=== PATIENT | male | born 1930 | race Caucasian/White ===

== ENCOUNTER 2016-11-07 14:14 | Inpatient (IN) | payer MEDICARE, OTHER ==
[~2016-11-07] VITALS: Ht 185.4 cm; Wt 81.0 kg
--- NOTE | ~2016-11-07 | CON ---
PATIENT'S NAME: DRAGAN DE JES[facility] AGE: 86 Y [address] ROOM: [address] [address] LOCATION: GICU ADMIT DATE: 11/07/2016 Consultation DISCHARGE DATE: FAMILY PHYSICIAN: PHYSICIAN, UNKNOWN ATTENDING PHYSICIAN: CHAZ MANCILLA DATE OF CONSULTATION: 11/07/2016 REFERRING PHYSICIAN: Luke Goins MD REASON FOR CONSULTATION: Medical management in the setting of intracranial hemorrhage. HISTORY OF PRESENTING ILLNESS: This 86-year-old white male with previous history of coronary artery disease, status post coronary artery bypass grafting x3, and what sounds like a history of pulmonary embolism, on long-term anticoagulation with warfarin, was transferred to [facility] from [place] with newly discovered intracranial hemorrhage. Briefly, he had been admitted there after being found poorly responsive by his son yesterday morning. Although he was awake at his initial evaluation, he was reportedly in and out of consciousness and only able to express a couple of words. He complained of feeling cold and chilled and was admitted and treated for presumed pneumonia. His clinical condition was relatively poor. Over the course of the night, he remained lethargic and poorly responsive. He did become intermittently confused, pulling and tugging at his medical equipment. Medical staff became concerned, and a CT scan of the head was obtained, which demonstrated a large right parieto-occipital hemorrhage as well as a couple of smaller left-sided hemorrhages. Dr. Mancilla, neurosurgeon, was contacted by telephone and after review of the images, it was felt that the lesion would possibly be amenable to surgery. It was requested that the patient be transferred here for definitive evaluation and management. In recollection, the family was suspicious that he may have fallen outside of his home the night before. His son had gone over to his house on Tuesday evening and had supper with him. Although there was no fall reported at that time, it seemed that he may have been outside picking up apples of the yard and might have fallen around that time. He was noted to have a small abrasion on the back, left side of his head, as well as a scrape on his elbow. X-ray imaging during his initial evaluation did reveal the presence of a right lower lobe pneumonia, and he was appropriately treated for that. On his arrival here, he is partially sedated, paralyzed, and intubated on a mechanical ventilator. Family arrived shortly after his arrival here. PATIENT'S NAME: DRAGAN DE [facility] AGE: 86 Y [address] ROOM: [id number] [place], [place] [id number] LOCATION: [facility] ADMIT DATE: 11/07/2016 Consultation DISCHARGE DATE: FAMILY PHYSICIAN: PHYSICIAN, UNKNOWN ATTENDING PHYSICIAN: CHAZ MANCILLA ALLERGIES: NO KNOWN DRUG ALLERGIES. ILLNESSES: 1. Coronary artery disease, status post coronary artery bypass grafting x3. 2. 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 3. Essential hypertension. 4. Hyperlipidemia. 5. 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 6. Osteoarthritis, generalized. 7. Chronic gait instability. 8. Squamous cell carcinoma of the lip, status post excision. CURRENT MEDICATIONS: 1. Acetaminophen 1000 mg IV q.6 hours p.r.n. pain or fever. 2. Amlodipine 10 mg p.o. daily. 3. Aspirin 81 mg p.o. daily. 4. Atorvastatin 80 mg p.o. q.h.s. 5. Azithromycin 500 mg IV q.24 hours. 6. Rocephin 1 g IV q.24 hours. 7. Lasix 20 mg p.o. daily. 8. Lorazepam 0.5 mg IV p.r.n. agitation. 9. Losartan 50 mg p.o. daily. 10. Metoprolol 25 mg p.o. b.i.d. 11. Nabumetone 500 mg p.o. q.h.s. 12. Protonix 40 mg p.o. q.a.m. 13. Coumadin daily. 14. Potassium 10 mEq p.o. daily. FAMILY HISTORY: Significant for coronary artery disease in his father, at the age 65. Mother at age 85. SOCIAL HISTORY: He is and has lived independently [place] the family farm. He has a 30- to 29-[id number]-lbtf history of smoking tobacco, but has been quit for over 30 years. There is no significant history of alcohol use. REVIEW OF SYSTEMS: As per HPI. All other organ systems reviewed and are negative. OBJECTIVE: VITAL SIGNS: Temperature 97.8, pulse 62, respirations 16, blood pressure 132/62, O2 saturation 99% on 60% FiO2. GENERAL: He is frail, ill appearing, PATIENT'S NAME: DRAGAN DE [facility] AGE: 86 Y [address] ROOM: [id number] [place], [place] [id number] LOCATION: [facility] ADMIT DATE: 11/07/2016 Consultation DISCHARGE DATE: FAMILY PHYSICIAN: PHYSICIAN, UNKNOWN ATTENDING PHYSICIAN: CHAZ MANCILLA unresponsive, lying on the examination table, mechanically ventilated. SKIN: Supple, pale, warm, and dry. There are some subcutaneous hemorrhages over the forearms. There is a skin tear on the left forearm, and an abrasion over the left elbow posteriorly. He has another small skin tear over the right middle finger on the dorsal surface. The skin overlying the lower extremities shows dermatitic change, no ulcerations. HEENT: Otherwise, normocephalic. Sclerae nonicteric. Pupils are equal and round, 2 to 3 mm, very slowly reactive to light. Nasal turbinates normal in appearance. Oropharynx clear. Mucous membranes are pink and moist. Dentition is in poor age-related repair. NECK: Supple. Plethoric. No masses or adenopathy. No thyromegaly. No obvious JVD in the horizontal position. CHEST: Chest wall is symmetrical. HEART: Regular with occasional extrasystoles. There is a grade 2/6 systolic ejection murmur. LUNGS: Coarse and diminished with long expiratory phase. No lili wheezes. No areas of consolidation. ABDOMEN: Soft, protuberant, nontender. Bowel sounds present. No mass or hepatosplenomegaly. and RECTAL: Not done. EXTREMITIES: Display trace to 1+ pitting edema. No cyanosis. NEUROLOGIC: Cranial nerves only partially assessed due to the patient's paralyzed status. LABORATORY AND X-RAY DATA: CT scan of the brain repeated here in the emergency department shows no significant change in the hemorrhagic findings outlined in [place]. A 12-lead EKG shows sinus bradycardia with PVCs and first-degree AV block. Right bundle branch block also noted. Urinalysis from [place] essentially unremarkable. INR was 2.0 on 11/06/2016. Chemistries revealed BUN and creatinine of 22 and 0.9 respectively. Sodium and potassium of 141 and 3.4, chloride and CO2 of 107 and 23 respectively. AST and ALT of 25 and 28; bilirubin was 1.8, repeated level at 1.2. A CBC showed a white blood cell count 3.3, hemoglobin 10.5, hematocrit 32.3, platelets 82. Lactate on 11/06/2016 was elevated at 2.3. Repeat lactate today was 1.8. ASSESSMENT AND PLAN: 1. Acute encephalopathy secondary to large intracranial hemorrhages. I would presume that these are posttraumatic in the setting of chronic anticoagulation and thrombocytopenia. We will admit to inpatient care in the intensive care unit. Continue with supportive cares and clinical monitoring. We will try to minimize sedative medications and paralytics and see how he does. I did discuss his poor condition (see below) at some length with his family including his son, Emerson, who is power of regulatory attorney. We discussed his living will and wishes for. No aggressive life-sustaining measures or life support, although difficult to predict I PATIENT'S NAME: DRAGAN DE [facility] AGE: 86 Y [address] ROOM: [address] [address] LOCATION: [facility] ADMIT DATE: 11/07/2016 Consultation DISCHARGE DATE: FAMILY PHYSICIAN: PHYSICIAN, UNKNOWN ATTENDING PHYSICIAN: CHAZ MANCILLA would project that he will have some permanent level of disability even with full recovery and that the likelihood of him being able to return home to live independently is small. Family expressed that they would like to discuss matters with Dr. Mancilla, neurosurgeon, as well as one other sibling by telephone. We will continue with supportive cares and make adjustments if necessary. 2. Acute on chronic hypoxic respiratory failure, multifactorial. Intracranial hemorrhage, right lower lobe pneumonia, and chronic obstructive pulmonary disease all contributing. We will encourage good pulmonary hygiene. Continue with mechanical ventilation for now. 3. Intracranial hemorrhage, multiple. I would presume that these are posttraumatic. He has already received reversal agents with FFP and vitamin K in [place]. We will await his repeat coagulation studies and consider additional reversal here. Fortunately, there is no evidence of progression of the hemorrhage by imaging studies. His long-term prognosis is guarded at best, and the family understands that. We will await discussion with Dr. Mancilla, and consideration for surgery versus continued conservative care versus comfort cares only. We will try to provide any additional information and support as necessary. 4. History of pulmonary embolism, on long-term anticoagulation with warfarin. As described above, there is some uncertainty about his diagnosis, and this was in the setting of his heart surgery in 2003. We will hold anticoagulation and follow up on his coagulation studies following reversal agents as outlined above. We will hold off on any additional anticoagulants, but utilize pneumatic compression devices to minimize the risk of deep venous thrombosis. 5. Thrombocytopenia, etiology unknown. We will follow this serially and consider additional workup depending on his progress and see decision on surgery and aggressive cares. 6. Essential hypertension. Appears to be adequately controlled. We will try to maintain systolic blood pressures below 150. 7. Right lower lobe pneumonia by chest x-ray. His lactate was only minimally elevated as outlined above. We will try to follow up on any blood cultures obtained in [place] and plan to continue with broad- spectrum antibiotic therapy for now. Encourage good pulmonary hygiene. 8. Hyperlipidemia. We will plan to continue with statin therapy. 9. Osteoarthritis, generalized. Strict avoidance of nonsteroidal antiinflammatory drugs as above. 10. Coronary artery disease, currently clinically stable and appears asymptomatic. We will hold aspirin as described above. We will plan to continue with beta-queta therapy and statin therapy. 11. Deep venous thrombosis prophylaxis. We will utilize pneumatic compression devices, but hold off on heparin or Lovenox in light of the hemorrhage as described above. PATIENT'S NAME: DRAGAN DE [facility] AGE: 86 Y [address] ROOM: [place] [address] LOCATION: [facility] ADMIT DATE: 11/07/2016 Consultation DISCHARGE DATE: FAMILY PHYSICIAN: PHYSICIAN, UNKNOWN ATTENDING PHYSICIAN: CHAZ MANCILLA MD MY EDGE/yogesh /[id number] d: 11/07/162045 t: 11/08/16 1003, CONSULTATION REPORT
--- NOTE | ~2016-11-07 | CON ---
PATIENT'S NAME: DRAGAN DE [facility] AGE: 86 Y [address] ROOM: [address] [address] [place] [facility] [place]: 11/07/2016 Consultation DISCHARGE DATE: FAMILY PHYSICIAN: Emerson Feng MD ATTENDING PHYSICIAN: Luke Goins DATE OF CONSULTATION: 11/08/2016 REFERRING PHYSICIAN: Erin Cedillo MD REASON FOR CONSULTATION: This is a palliative care referral for patient and family support and goals of care. HISTORY OF PRESENT ILLNESS: This 86-year-old male was admitted on 11/07/2016. He was found to be decreased level of consciousness and responsiveness yesterday morning by his son. His conscious level was in and out for a while and was able to say a couple words. He remained lethargic and poorly responsive. He was taken to [facility] and a CT scan revealed a large right parieto-occipital hemorrhage and a couple smaller left-sided hemorrhages. Dr. Mancilla, neurosurgeon, was contacted by phone, and the patient was transferred to [facility] for possible surgery. The patient's family was concerned that he might have fallen outside prior. He was noted to have a small abrasion on the back side of his head. Chest x-ray also revealed a right lower lobe pneumonia. The patient was sedated and intubated and CT was repeated on 11/08/2016 that revealed a very large acute intracranial parenchymal hemorrhage at the posterior right cerebral hemisphere, multiple additional small areas, and intraparenchymal hemorrhage in both hemispheres, subarachnoid bleed in the sulci in the cerebral hemispheres, right sylvian fissure, and within the ventricular system with right lateral ventricular slight midline shift to the left. PAST MEDICAL HISTORY: Coronary artery disease, status post coronary artery bypass grafting x3, history of presumed pulmonary embolism on long-term anticoagulants with Coumadin since 2004, essential hypertension, hyperlipidemia, chronic hypoxia and hypercapnia, respiratory failure with COPD, osteoarthritis, generalized chronic gait instability, squamous cell carcinoma of the lip status post excision. HOME MEDICATIONS: 1. Acetaminophen 1000 mg every 6 hours p.r.n. pain or fever. PATIENT'S NAME: DRAGAN DE [facility] AGE: 86 Y [address] ROOM: [address] [address] [place] [facility] [place]: 11/07/2016 Consultation DISCHARGE DATE: FAMILY PHYSICIAN: Emerson Feng MD ATTENDING PHYSICIAN: Luke Goins 2. Amlodipine 10 mg daily. 3. Aspirin 81 mg p.o. daily. 4. Atorvastatin 80 mg at bedtime. 5. Azithromycin 500 mg IV every 24 hours. 6. Rocephin 1 g IV every 24 hours. 7. Lasix 20 mg daily. 8. Lorazepam 0.5 IV p.r.n. agitation. 9. Losartan 50 mg daily. 10. Metoprolol 25 mg b.i.d. 11. Nabumetone 500 mg at bedtime. 12. Protonix 40 mg every morning. 13. Coumadin daily. 14. Potassium 10 mEq daily. FAMILY HISTORY: Father had coronary artery disease, at the age of 65. Mother at the age of 85. SOCIAL HISTORY: He is , has lived independent on the family farm, son lives close by. Smoking history, 20-30 pack per year. Quit over 30 years ago. No alcohol or illicit drug use. ALLERGIES: NO KNOWN ALLERGIES. REVIEW OF SYSTEMS: A complete review of systems was done and is negative except as mentioned in HPI. PHYSICAL EXAMINATION: GENERAL: This is an 86-year-old, unresponsive, does respond to painful stimuli, lethargic, vented. VITAL SIGNS: Temp 99.0, pulse 80, respirations 20, blood pressure 145/27, he is 6 feet 1 inch, weighs 177 pounds, BMI is 23.3. SKIN: Warm and dry. Color pale. HEENT: Head: Normocephalic and atraumatic. Pupils 2 mm, sluggish. Mouth is pink and moist, vented. NEUROLOGIC: Does respond to painful stimuli. No verbal. Not following commands. Lethargic. LYMPHATICS: No cervical adenopathy or thyromegaly. RESPIRATORY: Clear to auscultation bilaterally. Breath sounds even and regular. CARDIAC: S1, S2 without murmurs or bruits. 2+ pitting edema in lower extremities. PATIENT'S NAME: DRAGAN DE [facility]ES[facility] AGE: 86 Y [address] ROOM: [id number] [place] [id number] [place] [facility] [place]: 11/07/2016 Consultation DISCHARGE DATE: FAMILY PHYSICIAN: Emerson Feng MD ATTENDING PHYSICIAN: Luke Goins ABDOMEN: Soft, nontender. Positive bowel sounds. No hepatosplenomegaly. MUSCULOSKELETAL: Moves right arm to face, is restrained with ET tube. EXTREMITIES: No cyanosis or deformities. Palliative performance scale is 10%, totally bed-bound, unable to do any activity, total care, mouth care only, lethargic, not on sedation. IMPRESSION: Restlessness, pain, and altered level of consciousness. PLAN: 1. Met with family, sons Kolton and Francesco and daughters Kavya and Beena. Discussed the patient's overall condition, large intracranial hemorrhage. Dr. Mancilla was in and discussed intracranial hemorrhage, not increasing, and overall condition, gave options again for family, to continue aggressive treatments, possibly surgery or go comfortcares. Family understands that condition is very guarded. Reviewed the patient's values and goals and discussed goals of care for patient.Family wants to wait until 2 grandsons come in and then they would like to go comfort cares and remove the ventilator. The patient had told them that he never wanted to be on life support. Did not want to be in a fdc, long-term. Did not want life-sustaining treatments, and they would like to follow his wishes. 2. Code status and advance directive. A copy of advance directive is on the chart. Did discuss code status and comfort cares. Answered questions and concerns. Family has a good understanding of comfort cares and would like to make patient a do not resuscitate/do not intubate. 3. Answered questions after vent is removed and their goals. If they would like to get him netbackup administrator to home, discussed hospice back in [place]. Their goal is to get him back to [place] as soon as possible. Most of family live in the [place] area, and they would like jpatient to go to the swing bed in [place] for end of life cares. If possible, they would like care management to check on swing bed option. 4. Discussed taking home with Hospice. They feel they would have trouble getting him in the house due to the steps and sudden right curve that would be hard to get a gurney through door. They had trouble getting him out, would like the swing bed option first. We will contact [facility] and have them look at his records to see if he qualifies for hospice. Care management will check on swing bed. Total time was 65 minutes for counseling and coordination of care, education on hospice, goals of care, and code status. Thank you for allowing me to assist with this patient and family. PATIENT'S NAME: DRAGAN DE [facility] AGE: 86 Y [address] ROOM: [address] [address] [place] [facility] [place]: 11/07/2016 Consultation DISCHARGE DATE: FAMILY PHYSICIAN: Emerson Feng MD ATTENDING PHYSICIAN: Luke Goins HILDA [employer]NA [employer] FOR MD FAUSTINO WHYTE/yogesh /[id number] d: 11/09/16 1628 t: 11/12/16 1730, CONSULTATION REPORT
--- NOTE | ~2016-11-07 | HP ---
PATIENT'S NAME: DRAGAN DE JESUS [facility] AGE: 86 Y [address] ROOM: [place] [address] LOCATION: GICU ADMIT DATE: 11/07/2016 History & Physical DISCHARGE DATE: FAMILY PHYSICIAN: PHYSICIAN, UNKNOWN ATTENDING PHYSICIAN: CHAZ CEDENO DATE OF SERVICE: 11/07/2016 CHIEF COMPLAINT: Large right parietooccipital intraparenchymal hemorrhage, small left frontal, left temporal intraparenchymal hemorrhage. HISTORY OF PRESENT ILLNESS: The patient is an 86-year-old male patient, who is on chronic anticoagulation (warfarin), who was admitted to [facility] with change in his level of consciousness and fever. His investigations revealed presence of pneumonia. The patient was started on antibiotics. The patient was found to fluctuate in terms of his level of consciousness. Today, the patient had a noncontrast CT head, and that showed evidence of very large right parietooccipital intraparenchymal hemorrhage with significant vasogenic edema. It also showed evidence of mass effect. It also showed evidence of left frontal, left temporal intraparenchymal hemorrhage. I was contacted by Dr. Feng. I reviewed the images and recommended transferring the patient over for further investigations and management. I also recommended intubating the patient prior to transfer for airway protection. I met the patient in the intensive care unit. I also met the patient's family. The patient's family indicated that the patient was functioning fairly well prior to admission to [facility]. They denied any falls. The rest of the history was limited due to intubation and decreased level of consciousness. PAST MEDICAL AND SURGICAL HISTORY: Coronary artery disease, hypertension, hyperlipidemia, history of previous pulmonary embolism, osteoarthritis, unsteady gait, and squamous cell carcinoma of the lip. MEDICATIONS: Listed in the patient's chart. The patient was on warfarin and aspirin. Those were discontinued, and warfarin was reversed using fresh frozen plasma and vitamin K. ALLERGIES: NO KNOWN DRUG ALLERGIES. PATIENT'S NAME: DRAGAN DE JESUS [facility] AGE: 86 Y [address] ROOM: [place] [address] LOCATION: GICU ADMIT DATE: 11/07/2016 History & Physical DISCHARGE DATE: FAMILY PHYSICIAN: PHYSICIAN, UNKNOWN ATTENDING PHYSICIAN: CHAZ CEDENO REVIEW OF SYSTEMS: Unobtainable given the patient's level of consciousness. FAMILY HISTORY: Unobtainable given the patient's level of consciousness. SOCIAL HISTORY: Obtained from the family, the patient is and [place]. He is an ex-smoker. No significant history of alcohol intake. PHYSICAL EXAMINATION: VITAL SIGNS: The patient's systolic blood pressure is less than 150. The patient is intubated and ventilated. GENERAL: The patient is intubated and ventilated. HEENT: Head: No signs of trauma. The pupils are 2 mm and sluggishly reactive. Sclerae examination is normal. NEUROLOGIC: It is very limited due to sedation. He has no motor movements to painful stimulation. Pupils are 2 mm and sluggishly reactive. RESPIRATORY: He is intubated and ventilated. CARDIOVASCULAR: He has palpable pulses on his upper extremities. MUSCULOSKELETAL: He has pitting edema. INVESTIGATIONS: 1. Noncontrast CT head done in [place] on November 07, 2016, which I personally reviewed. It showed evidence of a very large right occipitoparietal intraparenchymal hemorrhage with significant surrounding vasogenic edema and mass effect. It showed evidence of midline shift to the left side. It also showed evidence of small left frontal, small left temporal intraparenchymal hemorrhages. 2. Repeat noncontrast CT head done at [facility]. It showed no significant change in the size of the intraparenchymal hemorrhages. 3. INR, which was repeated here. It was 2. It was reversed using fresh frozen plasma. Repeat INR later was less than 1.5. IMPRESSION AND PLAN: This 86-year-old male patient was diagnosed with fairly large right parietooccipital intraparenchymal hemorrhage as well as small left temporal, small left frontal intraparenchymal hemorrhages. The patient's examination is limited due to intubation, sedation, and paralysis. I reviewed the available imaging with the patient's family and pointed out the abnormalities seen. I then discussed the treatment options which include surgical intervention and evacuation of the hematoma, full medical management, and comfort care measures. I clearly indicated that any surgery would be just PATIENT'S NAME: ISMAELDAVISBatoolDRAGAN [facility] AGE: 86 Y [address] ROOM: [address] [place], [place] [address] LOCATION: [facility] ADMIT DATE: 11/07/2016 History & Physical DISCHARGE DATE: FAMILY PHYSICIAN: PHYSICIAN, GAYATRI ATTENDING PHYSICIAN: CHAZ CEDENO a life-saving operation, and it will not reverse the already happened damage to the brain. The patient's sons brought the patient's living well and wishes. It was clear that the patient would not like to live disabled. After family discussion, it was decided that we will continue with full medical management until all the family members arrive. The family declined surgical evacuation of the hematoma. I also discussed those recommendations with the hospitalist who was present during the discussion. In the meantime, we will continue with intubation, ventilation, blood pressure control, and full medical support. I will arrange for repeat noncontrast CT head on November 08, 2016, to reassess the hematoma. It was a pleasure taking care of this patient, and thanks for having us involved. MD SHERRY FRY/guadalupel /[id number] CC: Luke Goins MD D: [id number] T: [id number] HISTORY & PHYSICAL
--- NOTE | ~2016-11-07 | DS ---
PATIENT'S NAME: DRAGAN DE JESUS [facility] AGE: 86 Y [address] ROOM: [address] [place], [place] [address] [place] [facility] [place]: 11/07/2016 Discharge Summary DISCHARGE DATE: 11/10/2016 FAMILY PHYSICIAN: Emerson Feng MD ATTENDING PHYSICIAN: Luke Goins FINAL DIAGNOSES: 1. Large right intracerebral hemorrhage. 2. Acute encephalopathy, secondary to hemorrhage. 3. Acute on chronic hypoxic respiratory failure. 4. Right lower lobe pneumonia, presumed aspiration. 5. Pancytopenia. Please see the history and physical dictated by Dr. Mancilla as well as consultation provided by Dr. Goins for details of admission. LABORATORY DATA: On admission, pH was 7.46, pCO2 of 33, PO2 of 61. He was vented on FiO2 of 40%. Laboratory on admission: Sodium 143, potassium 3.7, chloride 112, CO2 of 23, BUN 23, creatinine 0.9, AST 61, white blood cell count 5, hemoglobin 10, hematocrit 30.9, and platelet count 76,000. His prothrombin time on admission was 21.4 with an INR of 2.02. RADIOLOGY STUDIES: CT scan of the head on arrival showed that there was a large intraparenchymal hemorrhage in the posterior right cerebral hemisphere. He had 2 smaller hemorrhages on the left side. HOSPITAL COURSE: The patient was admitted into the intensive care unit by Dr. Mancilla. The patient was intubated. Dr. Goins of the Hospitalist Service was consulted for medical management. Dr. Mancilla did discuss with the family options for treatment including surgical resection, medical treatment, or comfort measures. Initially, they opted to keep him intubated and do medical treatment. They were not comfortable proceeding with surgery. Once all the family arrived, the decision was made to make the patient comfort measures. At that time, he was transferred to the Hospitalist Service. Palliative Care did consult on the patient, and we did opt to do a compassionate extubation. We then used our inpatient comfort care order set. Decision was made to transfer him back to [place] so that it would be closer to home for the family. I contacted Dr. Feng, who graciously agreed to accept the patient. DISCHARGE INSTRUCTIONS: The patient is discharged to the [facility] Bed, n.p.o. His oxygen will be 2-4 L. He has a urinary catheter. MEDICATIONS: PATIENT'S NAME: DRAGAN DE JESUS [facility] AGE: 86 Y [address] ROOM: [address] [address] [place] [facility] [place]: 11/07/2016 Discharge Summary DISCHARGE DATE: 11/10/2016 FAMILY PHYSICIAN: Emerson Feng MD ATTENDING PHYSICIAN: Luke Goins 1. Atropine 1-2 drops sublingual every 4 hours as needed. 2. Haldol 1 mg sublingual or p.o. every hour as needed for delirium or confusion. 3. Ativan 0.5 mg p.o. sublingual every 2 hours as needed for shortness of breath or anxiety. 4. Compazine 25 mg suppository per rectum every 12 as needed for nausea. 5. The patient was also sent with a script for Roxanol 20 mg/mL, 5 mg p.o. or sublingual every 3 hours as needed for pain or air hunger. RK CLARK MD LAW/modl /[id number] CC: Emerson Feng MD d: 11/10/16 1924 t: 11/24/16 1105, DISCHARGE SUMMARY
--- NOTE | ~2016-11-07 | ENPV ---
Vascular Lower Extremities DVT Study Procedure Demographics Patient Name DRAGAN DE JESUS Date of Study 11/08/2016 Patient Number [id number] Gender Male Date of 1930 Age 86 Visit Number [id number] Height Accession Number [id number] Weight Room Number G6205 BSA BMI Referring Buster Kennedy MD Interpreting Cayetano Moreira MD Physician Physician Physician Ordering Physician Buster Kennedy MD Website Developer [employer]rector Apprentice Murray Krueger BS, RT Conclusions Summary No evidence of deep vein thrombosis or superficial thrombophlebitis in the lower extremities bilaterally . Procedure Type of Study: Veins:Lower Extremities DVT Study, Venous Duplex Lower Extremity Bilateral. Indications for Study:Stroke. Patient Status:Routine. Study Location:Inpatient Portable. Technical Quality:Adequate visualization. Velocities are measured in cm/s ; Diameters are measured in cm Right Lower Extremities DVT Study Measurements Right 2D and Doppler Measurements + + + + +------+------+ + !Location !Visualized!Compressibility!Thrombosis!Signal!Reflux!Reflux ! ! ! ! ! ! ! !(sec) ! + + + + +------+------+ + !GSV Thigh !Yes !Yes !None !Phasic!No ! ! + + + + +------+------+ + !Common !Yes !Yes !None !Phasic!No ! ! !Femoral ! ! ! ! ! ! ! + + + + +------+------+ + !Prox !Yes !Yes !None !Phasic!No ! ! !Femoral ! ! ! ! ! ! ! + + + + +------+------+ + !Mid Femoral!Yes !Yes !None !Phasic!No ! ! + + + + +------+------+ + !Dist !Yes !Yes !None !Phasic!No ! ! !Femoral ! ! ! ! ! ! ! + + + + +------+------+ + !Popliteal !Yes !Yes !None !Phasic!No ! ! + + + + +------+------+ + !Gastroc !Yes !Yes !None !Phasic!No ! ! + + + + +------+------+ + !PTV !Yes !Yes !None !Phasic!No ! ! + + + + +------+------+ + !Peroneal !Yes !Yes !None !Phasic!No ! ! + + + + +------+------+ + Left Lower Extremities DVT Study Measurements Left 2D and Doppler Measurements + + + + +------+------+ + !Location !Visualized!Compressibility!Thrombosis!Signal!Reflux!Reflux ! ! ! ! ! ! ! !(sec) ! + + + + +------+------+ + !GSV Thigh !Yes !Yes !None !Phasic!No ! ! + + + + +------+------+ + !Common !Yes !Yes !None !Phasic!No ! ! !Femoral ! ! ! ! ! ! ! + + + + +------+------+ + !Prox !Yes !Yes !None !Phasic!No ! ! !Femoral ! ! ! ! ! ! ! + + + + +------+------+ + !Mid Femoral!Yes !Yes !None !Phasic!No ! ! + + + + +------+------+ + !Dist !Yes !Yes !None !Phasic!No ! ! !Femoral ! ! ! ! ! ! ! + + + + +------+------+ + !Popliteal !Yes !Yes !None !Phasic!No ! ! + + + + +------+------+ + !Gastroc !Yes !Yes !None !Phasic!No ! ! + + + + +------+------+ + !PTV !Yes !Yes !None !Phasic!No ! ! + + + + +------+------+ + !Peroneal !Yes !Yes !None !Phasic!No ! ! + + + + +------+------+ + Signature dtt: ELIUD WILKINS dtd: 11/08/16 0946 Physician Self Edit
[2016-11-07 15:11] LABS: HEMATOCRIT 30.9 % (33.0-50.0); MCH 29.2 pg (27.0-34.0); MCHC 32.4 gm/dL (32.0-36.5); MCV 90.1 fl (83.0-98.0); PLATELET COUNT 76 K/uL (150-450); RBC 3.43 M/uL (3.50-5.50); RDW-CV 19.4 % (11.9-14.6)
[2016-11-07 15:22] LABS: INR - (THERAPEUTIC) 2.02 (0.92-1.07); PROTIME 21.4 SECONDS (9.8-11.4)
[2016-11-07 15:30] LABS: ALBUMIN 2.7 gm/dL (3.5-5.0); ANION GAP 11.7 (10.0-19.0); CALCIUM 8.2 mg/dL (8.5-10.5); CREATININE 0.9 mg/dL (0.6-1.3); POTASSIUM 3.7 mMol/L (3.7-5.1); TOTAL BILIRUBIN 1.4 mg/dL (0.0-1.5); TOTAL PROTEIN 6.2 g/dL (6.0-8.4)
[2016-11-07 15:52] LABS: BICARBONATE 23.7 mmol/L (18.0-23.0); PCO2 40 mmHg (35-45); PO2 69 mmHg (80-90)
[2016-11-07 16:16] LABS: ABSOLUTE NEUTROPHIL CT (ANC) 3.7 K/uL (1.4-9.0); BANDED NEUTROPHIL # 0.9 K/uL (0.0-0.1); BANDED NEUTROPHILS % 18 %; LYMPHOCYTE # 0.8 K/uL (0.8-4.0); LYMPHOCYTE % 15 %; MONOCYTE # 0.5 K/uL (0.0-1.0); SEGMENTED NEUTROPHIL # 2.8 K/uL (1.4-9.0); SEGMENTED NEUTROPHIL % 55 %
--- NOTE | 2016-11-07 16:44 | NUR ---
Pt transferred from outside facility, intubated with 8.0 ETT, secured with ETAD at 23 Lip. Initial ETCO2 28. Weaned Fio2 to 40%. No cough at the time with sxn of small clear/white. Vent settings A/C 12, 550 TV, P5. Will continue to monitor
--- NOTE | 2016-11-07 19:15 | NUR ---
SIGNIFICANT EVENT: PATIENT UP UNTIL 1800 HOUR WAS UNRESPONSIVE. PATIENT WAS NOT OPENING EYES SPONT, TO VOICE OR PAIN. NOW OPENS EYES PART WAY TO PAIN. BILAT EYES BRISK AND REACTIVE. PATIENT WAS NOT WITHDRAWING TO PAIN IN ANY OF THE 4 EXTREMITIES. NOW WITHDRAWS TO PAIN IN ALL 4 EXTREMITIES. SOME SPONTANEOUS MOVEMENTS NOTED IN ALL 4 EXTREMITIES, MORE ON THE R) THAN L). PURPOSEFUL MOVEMENTS NOTED IN R) UPPER EXTREMITY TOWARDS THE END OF THE SHIFT. PATIENT DOES NOT FOLLOW ANY COMMANDS, DOES NOT TILT HEAD TOWARDS VOICE. PATIENT HAS BEEN IN SINUS ARRYTHMIA, MANY PVCS AND PACS NOTED. HR 60-90S. PULSES PALPABLE THROUGHOUT. SOME EDEMA PRESENT IN BILAT LOWER EXTREMITIES. BP STABLE, SBO 110-150S, LABETALOL GIVEN X1 10MG IV. AFEBRILE. PATIENT HAS BEEN ON THE VENT SINCE ADMIT. DID NOT OVER BREATH THE VENT SETTINGS UNTIL 1600, NOW OVER BREATHS GAG AND COUGH REFLEX INTACT. NO SEIZURE ACTIVITY OBSERVED. DR CEDENO AWARE OF ALL ASSESSMENT FINDINGS. BOWEL SOUNDS PRESENT, NO BM. OG TO LIS, BILE OUTPUT. GASTELUM INTACT, ADEQUATE URINE OUTPUT. SEE SKIN ASSESSMENT FOR ALL SKIS ISSUES. FOLLOW UP: CONT TO MONITOR
[2016-11-07 23:15] LABS: INR - (THERAPEUTIC) 1.33 (0.92-1.07)
[2016-11-08 04:50] LABS: BICARBONATE 23.5 mmol/L (18.0-23.0); PCO2 33 mmHg (35-45); PO2 61 mmHg (80-90)
--- NOTE | 2016-11-08 05:19 | NUR ---
No vent changes made this shift. Continues on FiO2 of 40% on ventilator. He overbreathes vent rate and EtCO2 has been 23-26 this shift. BrSs slightly coarse, with moderate amounts of thick, bloody secretions being suctioned from ETT. Pt also has spontaneous cough, does not follow directions. CT trip this AM without any complication. Continue per plan of care.
[2016-11-08 05:41] LABS: ALBUMIN 2.9 gm/dL (3.5-5.0); ANION GAP 15.7 (10.0-19.0); CALCIUM 8.2 mg/dL (8.5-10.5); POTASSIUM 3.7 mMol/L (3.7-5.1); TOTAL BILIRUBIN 1.5 mg/dL (0.0-1.5); TOTAL PROTEIN 6.1 g/dL (6.0-8.4)
[2016-11-08 05:51] LABS: HEMATOCRIT 25.7 % (33.0-50.0); HEMOGLOBIN 8.3 g/dL (11.0-16.0); MCH 28.8 pg (27.0-34.0); MCHC 32.3 gm/dL (32.0-36.5); MCV 89.2 fl (83.0-98.0); PLATELET COUNT 66 K/uL (150-450); RBC 2.88 M/uL (3.50-5.50); RDW-CV 19.1 % (11.9-14.6); WBC 2.9 K/uL (4.0-11.0)
[2016-11-08 06:29] LABS: ABSOLUTE NEUTROPHIL CT (ANC) 1.7 K/uL (1.4-9.0); LYMPHOCYTE % 36 %; MONOCYTE # 0.2 K/uL (0.0-1.0); SEGMENTED NEUTROPHIL # 1.7 K/uL (1.4-9.0); SEGMENTED NEUTROPHIL % 57 %
--- NOTE | 2016-11-08 07:00 | NUR ---
Significant Event: Patient does not open eyes. Moves all extremeties spontaneously. Does not follow commands. R) stronger than L). Pupils unequal and reactive. SR, with frequent pvc, pac. BP labile. Temp max 101.8, 100.2 on last check. A/C on vent, blood-tinged secretions from ET tube. Bowel sounds hypoactive, no bm this shift. OG to LIS. Garcia intact, marginal UOP. Skin abnormalities noted. R)upper arm midline started this shift. PIV x1 also intact. Follow up: Follow up with family regarding plan of care.
[2016-11-08] MEDS ORDERED: LIPITOR80 MG PO (09:46)
[2016-11-08] MEDS ORDERED: NORVASC10 MG PO (09:46)
[2016-11-08] MEDS ORDERED: LASIX20 MG PO (09:46)
[2016-11-08] MEDS ORDERED: COZAAR50 MG PO (09:47)
[2016-11-08] MEDS ORDERED: RELAFEN500 MG PO (09:48)
[2016-11-08] MEDS ORDERED: LOPRESSOR50 MG PO (09:48)
[2016-11-08] MEDS ORDERED: K-TAB 10MEQ10 MEQ PO (09:49)
[2016-11-08] MEDS ORDERED: PROTONIX40 MG PO (09:49)
[2016-11-08] MEDS ORDERED: COUMADIN ** IA5 MG PO (09:53)
[2016-11-08] MEDS ORDERED: COUMADIN **IA7.5 MG PO (09:54)
[2016-11-08] MEDS ORDERED: NITROSTAT0.4 MG SL (09:55)
--- NOTE | 2016-11-08 11:55 | NUR ---
1056 Came by to talk with Matthieu and his family. He is currently on the vent and was in the room working with him. I was told that Chevy' family was down talking with Mandy [facility] Care RN, in the confrence room. CM not sure what dismissal plans for Matthieu will be. Plan to get an update from Mandy later re:her conversation with family and then go from there. In reviewing his chart, it appears that he lives in [place]. His children, Beena and Emerson are listed at the emergency contacts. It does appear that he is listed as . CM to continue to follow and assist.
--- NOTE | 2016-11-08 14:13 | NUR ---
Extubated Pt to comfort cares at 1330, placed on 2L NC
--- NOTE | 2016-11-08 15:07 | NUR ---
Patient is discharged from Physical Therapy due to being placed on Comfort Cares. Patient was not seen for Physical Therapy interventions prior to discharge. 11/08/16 Filipe Vaughan,PT
--- NOTE | 2016-11-08 15:50 | NUR ---
Consult from to work on getting Matthieu to [facility] for end of life/comfort cares. I stopped in and talked with Chevy' family who were at bedside. Explained myself and CM role. Talked with family about them wanting to get Matthieu back home, to [facility] for end of life/comfort cares, they were all in agreement with trying to do this. Let them know that I would talk with Melisa Lc at the [facility] and see if they had any beds and also if would accept Matthieu. Family in agreement. Also went over hotel resources with them as well. I phoned over to [facility], talked with Melisa, gave an update on Matthieu to her and asked if they would consider a skilled end of life/comfort care stay for Matthieu. She says they will, however, they wouldn't be able to take him until Tuesday as that is when he would have his three midnight qualification. Let her know that this was fine as I wasn't for sure if he would be in the best of shape or even make it through the night at this point so I told her I would just keep her updated. Melisa was fine with this. 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 All were fine and in agreement with trying to get Matthieu to [facility] on Tuesday if he was still here with us at that time. CM to continue to follow and assist.
--- NOTE | 2016-11-08 16:04 | NUR ---
Patient receiving comfort cares. Compassionate extubation at 1330 to 2L NC. Fentanyl, Robinul, Morphine for air hunger/secretions. Family at bedside. Goal to transfer to [place] for hospice care Tuesday am.
--- NOTE | 2016-11-09 04:46 | NUR ---
Significant Event: Patient on comfort cares. On 2L of O2. Reposition q2 hours or when family requests. Morphine, Fentanyl, and Ativan given PRN for comfort. Left AC and left midline IVs, saline locked. Family at the bedside. Follow up: Plan is to transfer to [place] with hospice on Tuesday.
--- NOTE | 2016-11-09 14:51 | NUR ---
Updated called/faxed into [facility]. Elijah says that she talked with and he would be willing to accept Matthieu on Tuesday if he is stable to tranfer at that time. Let Eugenie know we would plan on transfering Matthieu to them tomorrow. will be accepting [phone]. His number was given to to call in report. RN to RN number is [phone], this was left on the sticky note on the front of the chart so RN could call in report in the morning. Fax dismissal orders to [phone], fax cover letter was filled out and left on Chevy' chart. Family and nursing both updated to the plan to go to [facility] tomorrow and were in agreement with the plan. Set up ambulance transfer with Roseanne in dispatch. She says that our [place] crew will most likely be the ones to transport him tomorrow . Set up time for 1100 tomorrow morning. Packet started, orders printed, ambulance cert form is on the chart. No other questions, needs or concerns. Plan [facility] tomorrow on skilled end of life/comfort cares.
--- NOTE | 2016-11-09 18:03 | NUR ---
Significant Event:Patient on comfort care, turned Q2H or per family request, Gave morphine 2mg IVP Q2-3 HOURS, Ativan 0.5mg IVP given x 2 this shift, pt fidgets at times with RUE but rests calmly after meds given or respositioning, does not follow any commands or voice in understandable words, strong cough, mouth moistened at times, pt running 101.5 temp this AM and family choosing not to give Tylenol suppositories, remains on 2L NC per family request Follow up:Pt will leave tomorrow 11/10 at 1100 am with [facility] ambulance service at go to [facility] for further comfort cares
--- NOTE | 2016-11-10 02:59 | NUR ---
TRANSFER NOTE: TRANSFERRED FROM ICU ON COMFORT CARES. 3L 02, 81%. BP 128/65, P110, T101, RR28. MORPHINE Q1HR PRN AND ATIVAN Q2HR PRN. HAVE BEEN TRYING TO GIVE BOTH Q2HRS. PLAN FOR SWING BED IN [facility] AT 1100. DAUGHTER AND SON AT BEDSIDE.
--- NOTE | 2016-11-10 09:10 | NUR ---
Spoke with Dr. Cedillo, she completed orders. Faxed them to #[phone]. Charge Nickie aware patient is going at 1100. 1025 Nessa with EMS called to confirm transport. Nurse Georgie has the number to call report.
--- NOTE | 2016-11-10 12:33 | NUR ---
Patient will open his eyes with some verbal stimuli and repostioning. O2 at 4l/nc with sats at 54% early this morning and 84-85% prior to transfer. Respirations labored at times. Temperature at 101.4 and Tylenol 650mg supp given at 1006. Morphine 2 mg IV given x 2 doses with the last at 1043 and Ativan 0.5 mg IV given at 1043. Garcia patent and drains maurizio colored urine with 500 ml out. Midline IV to his R) upper arm flushes well with good blood return. Skin tear noted to his L) forearm and covered with a dressing. Repositioned q 2hrs. Oral cares done with repositioning.
== END 2016-11-10 11:00 | disposition swing bed (61) | DRG 64 ==
LOC: GICU 14:14 → GMSU 11-10 02:30
PROVIDERS: Neurological Surgery; ADMIT Family Medicine
DX: I62.9 Nontraumatic intracranial hemorrhage, unspecified (principal); G93.40 Encephalopathy, unspecified; J96.21 Acute and chronic respiratory failure with hypoxia; G93.6 Cerebral edema; J18.1 Lobar pneumonia, unspecified organism; D61.818 Other pancytopenia; D69.6 Thrombocytopenia, unspecified; G83.9 Paralytic syndrome, unspecified; D64.9 Anemia, unspecified; Z51.5 Encounter for palliative care; E78.5 Hyperlipidemia, unspecified; I10 Essential (primary) hypertension; I25.10 Atherosclerotic heart disease of native coronary artery without angina pectoris; M15.9 Polyosteoarthritis, unspecified
CPT/HCPCS: C1751; J0360; J2060; J2270; J2543; J2704; J3010; J7030; J7040; J7050; P9017; P9047

== ENCOUNTER → 2016-11-10 | Outpatient (CLI) | payer MEDICARE, OTHER ==
[~2016-11-10] MED LIST: COUMADIN ** IA5 MG PO; COUMADIN **IA7.5 MG PO; COZAAR50 MG PO; K-TAB 10MEQ10 MEQ PO; LASIX20 MG PO; LIPITOR80 MG PO; LOPRESSOR50 MG PO; NITROSTAT0.4 MG SL; NORVASC10 MG PO; PROTONIX40 MG PO; RELAFEN500 MG PO
== END | disposition disaster alternative care site (69) ==
LOC: GAMB 11:14
DX: R41.82 Altered mental status, unspecified (principal); J18.9 Pneumonia, unspecified organism; I61.9 Nontraumatic intracerebral hemorrhage, unspecified; I10 Essential (primary) hypertension; E78.5 Hyperlipidemia, unspecified; J44.9 Chronic obstructive pulmonary disease, unspecified; M19.90 Unspecified osteoarthritis, unspecified site; R45.1 Restlessness and agitation; Z95.1 Presence of aortocoronary bypass graft; Z79.891 Long term (current) use of opiate analgesic
CPT/HCPCS: A0428